=== PATIENT | male | born 1975 | race Two or more races ===

== ENCOUNTER → 2020-03-25 | Emergency (ER) | payer MEDICAID, OTHER ==
[~2020-03-25] VITALS: Ht 180.3 cm; Wt 95.3 kg
[~2020-03-25] MED LIST: ACETAMINOPHEN 500 MG TAB PO ONE; IBUPROFEN 800 MG TAB PO ONE; TETANUS-DIPTH-ACEL PERTUSSIS 0.5ML SYR Tdap IM ONE; cefTRIAXone SOD 1,000 MG VL IM ONE
[2020-03-25 19:18] VITALS: BP 163/97
== END | disposition home or self-care (01) ==
LOC: ER 18:59
DX: S02.32XA Fracture of orbital floor, left side, initial encounter for closed fracture (principal); S01.112A Laceration without foreign body of left eyelid and periocular area, initial encounter; G93.0 Cerebral cysts; Y04.2XXA Assault by strike against or bumped into by another person, initial encounter; Y93.89 Activity, other specified; Y92.89 Other specified places as the place of occurrence of the external cause; Y99.8 Other external cause status
CPT/HCPCS: 70450; 70486; 90471; 90715; 96372; 99285; J0696